=== PATIENT | male | born 1945 | race Hispanic/Latino ===

== ENCOUNTER 2016-12-12 09:11 | Inpatient (IN) | payer MEDICARE, SELFPAY ==
[2016-12-12 09:11] VITALS: BMI 26.6
[2016-12-12 10:21] LABS: BASO % 0.3 % (0.0-2.0); EOS # 0.5 K/uL (0.0-0.7); HEMATOCRIT 35.3 % (35.0-51.0); LYMPH # 0.7 K/uL (1.0-4.3); LYMPH % 5.7 % (20.0-40.0); MEAN CELL VOLUME 92.9 fL (80.0-94.0); MEAN CORPUSCULAR HEMOGLOBIN 31.2 pg (27.0-31.0); MEAN CORPUSCULAR HGB CONC 33.6 g/dL (33.0-37.0); MONO # 0.7 K/uL (0.0-0.8); MONO % 5.8 % (0.0-10.0); PLATELET COUNT 208 K/uL (130-400); RED CELL DISTRIBUTION WIDTH 13.5 % (11.5-14.5); WHITE BLOOD COUNT 11.5 K/uL (4.8-10.8)
[2016-12-12 10:34] LABS: RBC URINE < 1 /hpf (0-3); URINE BACTERIA RARE (<OCC); URINE BILIRUBIN NEGATIVE (NEGATIVE); URINE BLOOD NEGATIVE (NEGATIVE); URINE COLOR Yellow (YELLOW); URINE GLUCOSE (UA) 3+ mg/dL (Normal); URINE KETONE TRACE mg/dL (NEGATIVE); URINE LEUKOCYTE ESTERASE NEG Leu/uL (Negative); URINE PROTEIN NEGATIVE (NEGATIVE); URINE UROBILINOGEN NORMAL mg/dL (0.2-1.0); WBC URINE 1 /hpf (0-5)
[2016-12-12 10:36] LABS: CHLORIDE 97 mmol/L (98-107); POTASSIUM 3.9 mmol/L (3.6-5.2); SODIUM 138 mmol/L (132-148)
[2016-12-12 10:38] LABS: GFR AFRICAN-AMERICAN > 60
[2016-12-12 10:39] LABS: ALB/GLOB RATIO 1.2 (1.0-2.1); ALKALINE PHOSPHATASE 87 U/L (38-126); ALT/SGPT 14 U/L (21-72); AST/SGOT 18 U/L (17-59); BILIRUBIN,TOTAL 0.4 mg/dL (0.2-1.3); BLOOD UREA NITROGEN 21 mg/dL (9-20); CALCIUM 8.5 mg/dl (8.6-10.4); CARBON DIOXIDE 25 mmol/L (22-30); GLUCOSE,RANDOM 306 mg/dL (75-110); TOTAL PROTEIN 7.1 g/dL (6.3-8.3)
[2016-12-12 10:46] LABS: EOSINOPHIL 2 % (0-4); NEUTROPHIL 79 % (50-75); TOTAL CELLS COUNTED 100
--- NOTE | 2016-12-12 11:09 | CT ---
PROCEDURE: CT HEAD WITHOUT CONTRAST. HISTORY: tremor COMPARISON: MRI of the brain without contrast performed 07/24/15 TECHNIQUE: Axial computed tomography images were obtained through the head/brain without intravenous contrast. Radiation dose: Total exam DLP = 856.48 mGy-cm. FINDINGS: Streak artifact obscures evaluation of the skullbase. HEMORRHAGE: No intracranial hemorrhage. BRAIN: Diffuse atrophy with prominence of the ventricles and sulci noted. No mass effect or edema. Intracranial atherosclerosis. Moderate scattered periventricular and subcortical white matter hypodensities, which are nonspecific, but often seen with chronic microvascular ischemic disease. Please note that MRI with diffusion imaging is more sensitive in the detection of acute ischemic event. VENTRICLES: No hydrocephalus. CALVARIUM: Unremarkable. PARANASAL SINUSES: Unremarkable as visualized. No significant inflammatory changes. MASTOID AIR CELLS: Opacification of the left mastoid air cells; correlate clinically for mastoiditis. The right mastoid air cells appear clear. OTHER FINDINGS: None. IMPRESSION: Moderate scattered nonspecific white matter changes as above. Opacification of the left mastoid air cells; correlate clinically for mastoiditis.
--- NOTE | 2016-12-12 11:32 | RAD ---
HISTORY: shaky COMPARISON: None available. TECHNIQUE: Chest, one view. FINDINGS: LUNGS: No focal consolidation. Please note that chest x-ray has limited sensitivity for the detection of pulmonary masses. PLEURA: No significant pleural effusion identified. No definite pneumothorax . CARDIOVASCULAR: Cardiomegaly. Atherosclerotic calcifications. OSSEOUS STRUCTURES: Degenerative changes. VISUALIZED UPPER ABDOMEN: Elevation of the right hemidiaphragm. OTHER FINDINGS: None. IMPRESSION: Cardiomegaly. Elevation of the right hemidiaphragm.
--- NOTE | 2016-12-12 13:57 | C.PDOC ---
History Of Present Illness 71 year old male with a history of DM, presents to the ED with complaints of waking up shaking today. Denies any pain, trauma, or any other complaints at this time. Time Seen by Provider: 12/12/16 09:30 Chief Complaint (Nursing): Weakness/Neurological Deficit History Per: Patient History/Exam Limitations: no limitations Onset/Duration Of Symptoms: Hrs Current Symptoms Are (Timing): Still Present Seizure Or Post-ictal Symptoms: None Fall Associated With With Symptoms: No Severity: Mild Past Medical History Reviewed: Historical Data, Nursing Documentation, Vital Signs Vital Signs: Last Vital Signs Temp 99.3 F 12/12/16 16:13 Pulse 91 H 12/12/16 16:13 Resp 18 12/12/16 16:13 BP 112/70 12/12/16 16:13 Pulse Ox 96 12/12/16 16:13 - Medical History PMH: HTN, Hypercholesterolemia Family History: States: Unknown Family Hx - Social History Hx Alcohol Use: Yes Hx Substance Use: No - Immunization History Hx Tetanus Toxoid Vaccination: No Hx Influenza Vaccination: No Hx Pneumococcal Vaccination: No Review Of Systems Except As Marked, All Systems Reviewed And Found Negative. Constitutional: Positive for: Other (+Shaking) Cardiovascular: Negative for: Chest Pain, Palpitations Respiratory: Negative for: Shortness of Breath Gastrointestinal: Negative for: Nausea, Vomiting, Abdominal Pain Musculoskeletal: Negative for: Neck Pain, Back Pain Neurological: Negative for: Weakness, Numbness, Headache Physical Exam - Physical Exam Appears: Non-toxic, No Acute Distress, Other (tremor noticed) Skin: Normal Color, Warm, Dry Head: Atraumatic, Normacephalic Eye(s): bilateral: Normal Inspection Ear(s): Bilateral: Normal Nose: No Discharge Oral Mucosa: Moist Throat: Normal, No Erythema, No Exudate Neck: Normal ROM, Supple Chest: Symmetrical, No Deformity Cardiovascular: Rhythm Regular, No Murmur Respiratory: Normal Breath Sounds, No Accessory Muscle Use, No Rales, No Rhonchi , No Wheezing Gastrointestinal/Abdominal: Soft, No Tenderness Extremity: Normal ROM, No Pedal Edema, No Calf Tenderness, No Deformity Neurological/Psych: Oriented x3, Normal Speech, Normal Cognition ED Course And Treatment - Laboratory Results Result Diagrams: 12/12/16 10:14 12/12/16 10:14 O2 Sat by Pulse Oximetry: 94 - Radiology CXR: Viewed By Me, Read By Radiologist CXR Interpretation: Yes: Cardiomegaly, Other (Elevation of the right hemidiaphragm.) - CT Scan/US CT Head w/o contrast Other Rad Studies (CT/US): Read By Radiologist, Radiology Report Reviewed CT/US Interpretation: Accession No. : [id number]. Patient Name / ID : DELANO LAURENT / [id number]. Exam Date : 12/12/2016 10:24:17 ( Approved ). Study Comment : Sex / Age : M / 71Y. Creator : Miriam Murphy MD. Dictator : Miriam Murphy MD. Production Support Analyst : Police Lieutenant : Miriam Murphy MD. Approver2 : Report Date : 12/12/2016 11:08:10. My Comment : . PROCEDURE: CT HEAD WITHOUT CONTRAST. HISTORY: tremor. COMPARISON: MRI of the brain without contrast performed 07/24/15. TECHNIQUE: Axial computed tomography images were obtained through the head/brain without intravenous contrast. Radiation dose: Total exam DLP = 856.48 mGy-cm. FINDINGS: Streak artifact obscures evaluation of the skullbase. HEMORRHAGE: No intracranial hemorrhage. BRAIN: Diffuse atrophy with prominence of the ventricles and sulci noted. No mass effect or edema. Intracranial atherosclerosis. Moderate scattered periventricular and subcortical white matter hypodensities, which are nonspecific, but often seen with chronic microvascular ischemic disease. Please note that MRI with diffusion imaging is more sensitive in the detection of acute ischemic event. VENTRICLES: No hydrocephalus. CALVARIUM: Unremarkable. PARANASAL SINUSES: Unremarkable as visualized. No significant inflammatory changes. MASTOID AIR CELLS: Opacification of the left mastoid air cells; correlate clinically for mastoiditis. The right mastoid air cells appear clear. OTHER FINDINGS: None. IMPRESSION: Moderate scattered nonspecific white matter changes as above. Opacification of the left mastoid air cells; correlate clinically for mastoiditis. Progress Note: CT Head w/o contrast, CXR, Blood work, Urinalysis, and Flu swab ordered and reviewed. Patient developed a fever in the ER. Rocephin and Tylenol administered. Case was d/w Hospitalist operations and intelligence assistant who accepted patient to [facility] floor for observation. Disposition - Disposition Disposition: HOSPITALIZED Disposition Time: 15:48 Condition: FAIR - Clinical Impression Clinical Impression: Fever and chills - PA / CIVIL ENGINEERING DRAFTSPERSON / Resident Statement MD/DO has reviewed & agrees with the documentation as recorded. - Scribe Statement The provider has reviewed the documentation as recorded by the Scribe Dorothea Carbajal. All medical record entries made by the Scribe were at my direction and personally dictated by me. I have reviewed the chart and agree that the record accurately reflects my personal performance of the history, physical exam, medical decision making, and the department course for this patient. I have also personally directed, reviewed, and agree with the discharge instructions and disposition. Decision To Admit - Pt Status Changed To: Hospital Disposition Of: Observation - . Bed Request Type: Regular Admitting Physician: Carrol Whitmore Patient Diagnosis: Fever and chills
[2016-12-12] MEDS ORDERED: cefTRIAXone IV 1 gm in Dextros 50 ML IVPB ONE (14:58)
[2016-12-12] MEDS ORDERED: Sodium Chloride 0.9% 500 ML IV ONE (15:12)
--- NOTE | 2016-12-12 15:48 | CP.PCM.HP ---
<Holly Clement - Last Filed: 12/12/16 16:14> History of Present Illness - History of Present Illness History of Present Illness: CC: "contracted legs and tremors" HPI: Patient is a 71 year old male with PMHx of DMII and HTN presenting for contracted legs and "shaking legs." Patient says he woke up this morning and tried to walk but could not. He says his legs were very contracted. He says he got to the phone and called EMS. He says he then began shaking a lot which he remembers. He did not fall or hit his head. He just held onto a railing while his body shook. He did not urinate on himself or bite his tongue. Patient remembers the whole episode. Patient says this has never happened before. Patient also notes low back pain that has been getting worse since a fall 1 year ago. Patient also reports SOB and cough productive of green phlegm x 2 weeks. Patient denies orthopnea and sleeps with one pillow. Patient denies wheezing or history of asthma. Patient denies fever, chills, headache, vision change, ear pain, tinnitus, dizziness, chest pain, palpitations, abdominal pain, nausea, vomiting, diarrhea, constipation, dysuria, hematuria, easy bleeding, rash, wounds. Patient checks his feet for wounds every time he showers. PMD: Dr. Ann Allergies: NKDA PMH: HTN, DM2 PSH: denies Social: quit tobacco 40 years ago before which he smoked 1 pack every day for 10 years, denies ETOH, denies drugs, lives alone, retired fork driver/sales workers Family: No MIs, strokes or Cancer Present on Admission - Present on Admission Any Indicators Present on Admission: Yes History of Uncontrolled Diabetes: Yes Review of Systems - Constitutional Constitutional: Chills. absent: Fever - EENT Eyes: absent: Blurred Vision, Loss of Vision Ears: absent: Ear Pain, Tinnitus Nose/Mouth/Throat: absent: Sore Throat - Cardiovascular Cardiovascular: Dyspnea. absent: Chest Pain, Leg Edema, Leg Ulcers, Palpitations, Pedal Edema - Respiratory Respiratory: Cough, Dyspnea, Excessive Mucous Production, Change in Mucous Color. absent: Wheezing, Pain on Inspiration, Pain with Coughing - Gastrointestinal Gastrointestinal: absent: Abdominal Pain, Constipation, Diarrhea, Hematochezia, Nausea, Vomiting - Genitourinary Genitourinary: absent: Dysuria, Urinary Frequency - Musculoskeletal Musculoskeletal: Back Pain (lumbar pain x 1 year) - Integumentary Integumentary: absent: Rash, Wounds - Neurological Neurological: absent: Confusion, Dizziness, Headaches - Endocrine Endocrine: absent: Fatigue, Palpitations - Hematologic/Lymphatic Hematologic: absent: Easy Bleeding, Easy Bruising Past Patient History - Past Medical History & Family History Past Medical History?: Yes Past Family History: Reviewed and not pertinent - Past Social History Smoking Status: Former Smoker Alcohol: None Drugs: Denies Home Situation {Lives}: Alone - CARDIAC Hx Hypercholesterolemia: Yes Hx Hypertension: Yes - ENDOCRINE/METABOLIC Hx Endocrine Disorders: Yes Hx Diabetes Mellitus Type 2: Yes - HEMATOLOGICAL/ONCOLOGICAL Hx Blood Transfusions: No - GASTROINTESTINAL Hx Gastrointestinal Disorders: No - PSYCHIATRIC Hx Substance Use: No - SURGICAL HISTORY Hx Surgeries: No - ANESTHESIA Hx Anesthesia: No Hx Anesthesia Reactions: No Hx Malignant Hyperthermia: No Meds Allergies/Adverse Reactions: Allergies Allergy/AdvReac Type Severity Reaction Status Date / Time No Known Allergies Allergy Verified 12/12/16 09:25 Physical Exam - Constitutional Appears: Non-toxic, No Acute Distress - Head Exam Head Exam: ATRAUMATIC, NORMAL INSPECTION - Eye Exam Eye Exam: EOMI - ENT Exam ENT Exam: Mucous Membranes Moist, Normal Oropharynx - Neck Exam Additional comments: 1 mobile 1cm right submandibular lymph node - Respiratory Exam Respiratory Exam: Rhonchi (slight rhonchi in right base), NORMAL BREATHING PATTERN. absent: Accessory Muscle Use, Chest Wall Tenderness, Rales, Respiratory Distress - Cardiovascular Exam Cardiovascular Exam: REGULAR RHYTHM, +S1, +S2. absent: Gallop, Rubs, +S4, Systolic Murmur - GI/Abdominal Exam GI & Abdominal Exam: Normal Bowel Sounds, Soft. absent: Distended, Firm, Tenderness - Extremities Exam Extremities exam: Negative for: pedal edema - Neurological Exam Neurological exam: Alert, Oriented x3 - Psychiatric Exam Psychiatric exam: Normal Affect, Normal Mood - Skin Skin Exam: Normal Color, Warm Results - Vital Signs Recent Vital Signs: Last Vital Signs Temp 100.5 F H 12/12/16 12:32 Pulse 81 12/12/16 13:12 Resp 18 12/12/16 13:12 BP 118/61 12/12/16 13:12 Pulse Ox 94 L 12/12/16 14:01 - Labs Result Diagrams: 12/12/16 10:14 12/12/16 10:14 Labs: Laboratory Results - last 24 hr 12/12/16 12/12/16 12/12/16 09:27 09:36 10:14 WBC 11.5 H RBC 3.80 L Hgb 11.9 L Hct 35.3 MCV 92.9 MCH 31.2 H MCHC 33.6 RDW 13.5 Plt Count 208 MPV 9.0 Neut % (Auto) 84.2 H Lymph % (Auto) 5.7 L [place] % (Auto) 5.8 Eos % (Auto) 4.0 Baso % (Auto) 0.3 Neut # 9.7 H Lymph # 0.7 L [place] # 0.7 Eos # 0.5 Baso # 0.0 Neutrophils % (Manual) 79 H Band Neutrophils % 6 H Lymphocytes % (Manual) 6 L Monocytes % (Manual) 7 Eosinophils % (Manual) 2 Platelet Estimate Normal RBC Morphology Normal PT 11.5 INR 1.0 APTT 28 Sodium 138 Potassium 3.9 Chloride 97 L Carbon Dioxide 25 Anion Gap 20 BUN 21 H Creatinine 1.2 Est GFR ( Amer) > 60 Est GFR (Non-Af Amer) > 60 POC Glucose (mg/dL) 242 H Random Glucose 306 H Lactic Acid 2.6 H Calcium 8.5 L Total Bilirubin 0.4 AST 18 ALT 14 L Alkaline Phosphatase 87 Total Creatine Kinase 48 L CK-MB (Mass) 0.46 Troponin I < 0.0120 Total Protein 7.1 Albumin 3.8 Globulin 3.3 Albumin/Globulin Ratio 1.2 Urine Color Yellow Urine Clarity Clear Urine pH 5.0 Ur Specific [place] 1.013 Urine Protein Negative Urine Glucose (UA) 3+ H Urine Ketones Trace Urine Blood Negative Urine Nitrate Negative Urine Bilirubin Negative Urine Urobilinogen Normal Ur Leukocyte Esterase Neg Urine WBC (Auto) 1 Urine RBC (Auto) < 1 Ur Squamous Epith Cells < 1 Urine Bacteria Rare Influenza Typ A,B (EIA) Negative for flu a/b Assessment & Plan - Assessment and Plan (Free Text) Assessment: 1. SIRS Temp 102.5 on admission, dropped to 100.5 WBC 11.5 with left shift and bandemia Lactic Acid 2.6 Likely secondary to pneumonia CXR 12/12/16- cardiomegaly and elevated right hemidiaphragm (please see full report). Will recheck CXR in AM as patient is likely dry UA 3+ glucose, no WBC or LE or nitrates Influenza swab negative F/U blood and urine culture Tylenol 650mg PO Q6H PRN fever 2. Contracted legs Resolved Head CT on admission - moderate scattered nonspecific white matter changes. opacification of left mastoid air cells. Correlate clinically for mastoiditis( please see full report) No mastoid tenderness, ear tenderness or jaw tenderness on exam 3. Pneumonia F/U blood and sputum culture F/U Legionella, strep AG and Mycoplasma 1L NS bolus NS 100cc/hr CXR in AM Rocephin 1gm IVPB daily Zithromax 500mg IVPB daily Tylenol 650mg PO Q6H PRN fever 4. DMII Holding home metformin 500mg PO BID and glipizide 5mg PO BID RISS - high dose F/U HgbA1C Monitor accuchecks Continue ASA 81mg PO daily and lipitor 10mg PO daily and lyrica 75mg PO BID 5. HTN Continue home meds: Verapamil 300mg PO daily Lopressor 100mg PO daily Lisinopril 40mg PO BID HCTZ 25mg PO daily 6. Vitamin D deficiency continue home med [id number] Q wk 7. Prophylaxis Protonix 40mg PO daily Hep 5000U SC Q8 SCDs <Rowdy Mares H - Last Filed: 12/13/16 07:38> Results - Vital Signs Recent Vital Signs: Last Vital Signs Temp 98.0 F 12/13/16 04:00 Pulse 87 12/13/16 04:00 Resp 20 12/13/16 04:00 BP 167/72 H 12/13/16 04:00 Pulse Ox 97 12/13/16 04:00 - Labs Result Diagrams: 12/13/16 06:59 12/12/16 10:14 Labs: Laboratory Results - last 24 hr 12/12/16 12/12/16 12/12/16 16:19 16:31 17:02 WBC RBC Hgb Hct MCV MCH MCHC RDW Plt Count MPV Neut % (Auto) Lymph % (Auto) [place] % (Auto) Eos % (Auto) Baso % (Auto) Neut # Lymph # [place] # Eos # Baso # POC Glucose (mg/dL) 265 H Lactic Acid 2.0 Ur L.pneumophila Ag Negative 12/12/16 12/13/16 12/13/16 22:18 06:20 06:59 WBC 8.4 RBC 3.37 L Hgb 10.3 L Hct 30.9 L MCV 91.7 MCH 30.6 MCHC 33.3 RDW 13.6 Plt Count 172 MPV 8.9 Neut % (Auto) 75.1 H Lymph % (Auto) 12.7 L [place] % (Auto) 7.8 Eos % (Auto) 4.0 Baso % (Auto) 0.4 Neut # 6.3 Lymph # 1.1 [place] # 0.7 Eos # 0.3 Baso # 0.0 POC Glucose (mg/dL) 188 H 158 H Lactic Acid Ur L.pneumophila Ag Attending/Attestation - Attestation I have personally seen and examined this patient.: Yes I have fully participated in the care of the patient.: Yes I have reviewed all pertinent clinical information: Yes Notes (Text): 12/13/16 07:34 Medical attending: Patient was seen and examined by me in the ER bed 8B. I do agree with the above note by medical surgery nurse. The patient had family members present and we all examined and discussed together. The patient reported that he was feeling fine now. Again as discussed above the resident note the earlier had fevers as well as some shaking that woke him up out of bed at night he also reported some night sweats as well the emergency room did do an influenza study this was negative however I pointed out to the patient as well as the patient's family members that sometimes the study to be negative and he might actually do have the flu. His white blood cell count is stable however he does have a left shift as well as bandemia noted on the blood work. He was having fevers earlier, he had a very slight elevation of his lactic acid level He does report coughing a lot, as well as some phlegm production. The chest film was appeared to be negative for any pulmonary process however if he doesn' t have some improvement in the lab work tomorrow we will consider getting a CT of the chest without contrast. He received any biotics before the emergency room true blood cultures. He had not yet received any intravenous fluids and supportive give him some intravenous fluid boluses been followed up with IV fluids. The chest x-ray suggests possible cardiomegaly, he is not short of breath at this time and we are giving a lot of fluids we will repeat this chest x-ray the next day and if he becomes fluid overload or anything will have to stop that In the meantime we'll give antibodies, check blood cultures, and check sputum cultures as well as atypical cultures. This being said I did point out to the patient as well as the patient's family member that this may represent some type of viral illness such as the influenza or other URIs such as acute bronchitis thank you Rowdy Mares
[2016-12-12] MEDS ORDERED: Sodium Chloride 0.9% 1,000 ML IV ONE (16:30)
[2016-12-12] MEDS ORDERED: (Novolin R) Insulin Human Regular 100 units/ml vial ONE (16:35)
[2016-12-12] MEDS: (Novolin R) Insulin Human Regular 100 units/ml vial SC SCH ×2 (16:35→22:19)
--- NOTE | 2016-12-12 18:32 | RAD ---
HISTORY: possible pneumonia COMPARISON: Chest x-ray performed earlier the same day TECHNIQUE: Chest PA and lateral FINDINGS: Examination limited by habitus. LUNGS: Left basilar atelectasis/ infiltrate. Please note that chest x-ray has limited sensitivity for the detection of pulmonary masses. PLEURA: No significant pleural effusion identified. No definite pneumothorax . CARDIOVASCULAR: Heart size appears top normal. Atherosclerotic calcification of the aorta. OSSEOUS STRUCTURES: Degenerative changes of the spine and shoulders. Kyphosis. Acromioclavicular arthropathy. VISUALIZED UPPER ABDOMEN: Elevation of the right hemidiaphragm. OTHER FINDINGS: None. IMPRESSION: Left basilar atelectasis/ infiltrate.
[2016-12-12] MEDS: Sodium Chloride 0.9% 1,000 ML IV SCH (19:46)
[2016-12-12] MEDS: Azithromycin 500 MG in Sodium Chloride 0.9% 250 ML IVPB SCH (19:59)
[2016-12-13 07:07] LABS: BASO % 0.4 % (0.0-2.0); EOS # 0.3 K/uL (0.0-0.7); HEMATOCRIT 30.9 % (35.0-51.0); LYMPH # 1.1 K/uL (1.0-4.3); LYMPH % 12.7 % (20.0-40.0); MEAN CELL VOLUME 91.7 fL (80.0-94.0); MEAN CORPUSCULAR HEMOGLOBIN 30.6 pg (27.0-31.0); MEAN CORPUSCULAR HGB CONC 33.3 g/dL (33.0-37.0); MEAN PLATELET VOLUME 8.9 fL (7.2-11.7); MONO # 0.7 K/uL (0.0-0.8); MONO % 7.8 % (0.0-10.0); RED CELL DISTRIBUTION WIDTH 13.6 % (11.5-14.5); WHITE BLOOD COUNT 8.4 K/uL (4.8-10.8)
[2016-12-13 07:24] LABS: CHLORIDE 100 mmol/L (98-107); POTASSIUM 3.9 mmol/L (3.6-5.2); SODIUM 137 mmol/L (132-148)
[2016-12-13 07:26] LABS: ALB/GLOB RATIO 1.1 (1.0-2.1); ALKALINE PHOSPHATASE 57 U/L (38-126); AST/SGOT 17 U/L (17-59); BILIRUBIN,TOTAL 0.4 mg/dL (0.2-1.3); BLOOD UREA NITROGEN 17 mg/dL (9-20); CARBON DIOXIDE 27 mmol/L (22-30); CHOLESTEROL 180 mg/dL (0-199); GFR AFRICAN-AMERICAN > 60; TOTAL PROTEIN 6.1 g/dL (6.3-8.3)
[2016-12-13 07:27] LABS: ALT/SGPT 23 U/L (21-72); CALCIUM 7.6 mg/dl (8.6-10.4); GLUCOSE,RANDOM 154 mg/dL (75-110)
[2016-12-13] MEDS: (Novolin R) Insulin Human Regular 100 units/ml vial SC SCH ×4 (07:47→22:00)
[2016-12-13] MEDS: Pantoprazole 40 mg EC Tab PO SCH (09:23)
[2016-12-13] MEDS: Sodium Chloride 0.9% 1,000 ML IV SCH ×3 (09:23→15:04)
[2016-12-13] MEDS ORDERED: VERAPAMIL HCL 300 MG PO SCH (10:00)
[2016-12-13] MEDS ORDERED: Ergocalciferol 50,000 Intl Units Cap PO SCH (10:00)
--- NOTE | 2016-12-13 15:23 | CP.PCM.PN ---
<Jorge Luis Rossy - Last Filed: 12/13/16 15:24> Subjective - Date & Time of Evaluation Date of Evaluation: 12/13/16 Time of Evaluation: 15:23 - Subjective Subjective: PGY-1 Medicine Progress Note for Dr. Mares Patient seen and examined at bedside. No acute event overnight. Patient still complaining of cough. He stated fever and his breathing has improved. Patient also complaining of chest pain due to repetitive cough. Tolerating diet. Denied fever/chills, sob, palpitations, abd pain, n/v/d. Objective - Vital Signs/Intake and Output Vital Signs (last 24 hours): Temp Pulse Resp BP Pulse Ox 99.8 F H 87 20 134/72 97 12/13/16 07:40 12/13/16 10:58 12/13/16 07:40 12/13/16 14:34 12/13/16 07:40 Intake and Output: 12/13/16 12/13/16 06:59 18:59 Intake Total 1590 1150 Output Total 700 1200 Balance 890 -50 - Medications Medications: Current Medications Acetaminophen (Tylenol 325mg Tab) 650 mg PO Q6 PRN PRN Reason: Fever >100.4 F Last Admin: 12/12/16 19:57 Dose: 650 mg Aspirin (Ecotrin) 81 mg PO DAILY [facility] Last Admin: 12/13/16 09:22 Dose: 81 mg Ergocalciferol (Drisdol 50,000 Intl Units Cap) 1 cap PO QWK [facility] Last Admin: 12/13/16 09:22 Dose: 1 cap Heparin Sodium (Porcine) (Heparin) 5,000 units SC Q8 [facility] Last Admin: 12/13/16 13:42 Dose: 5,000 units Hydrochlorothiazide (Hydrodiuril) 25 mg PO DAILY [facility] Last Admin: 12/13/16 09:22 Dose: 25 mg Azithromycin 500 mg/ Sodium (Chloride) 250 mls @ 250 mls/hr IVPB Q24H [facility] Last Admin: 12/12/16 19:59 Dose: 250 mls/hr Ceftriaxone Sodium 1 gm/ (Sodium Chloride) 100 mls @ 100 mls/hr IVPB DAILY [facility] Last Admin: 12/13/16 09:23 Dose: 100 mls/hr Sodium Chloride (Sodium Chloride 0.9%) 1,000 mls @ 60 mls/hr IV .[id number] [facility] Last Admin: 12/13/16 15:04 Dose: 60 mls/hr Insulin Human Regular (Novolin R) 0 unit SC ACHS [facility] PRN Reason: Protocol Last Admin: 12/13/16 12:12 Dose: 4 unit Lisinopril (Zestril) 40 mg PO BID [facility] Last Admin: 12/13/16 14:34 Dose: 40 mg Metoprolol Tartrate (Lopressor) 100 mg PO BID [facility] Last Admin: 12/13/16 09:22 Dose: 100 mg Pantoprazole Sodium (Protonix Ec Tab) 40 mg PO DAILY [facility] Last Admin: 12/13/16 09:23 Dose: 40 mg Pregabalin (Lyrica) 75 mg PO BID [facility] Last Admin: 12/13/16 09:22 Dose: 75 mg Rosuvastatin Calcium (Crestor) 5 mg PO HS [facility] Last Admin: 12/12/16 21:50 Dose: 5 mg - Labs Labs: 12/13/16 06:59 12/13/16 06:59 PT 11.5 SECONDS (9.7-12.2) 12/12/16 10:14 INR 1.0 12/12/16 10:14 APTT 28 SECONDS (21-34) 12/12/16 10:14 - Constitutional Appears: No Acute Distress - Head Exam Head Exam: ATRAUMATIC, NORMOCEPHALIC - Eye Exam Eye Exam: EOMI, Normal appearance Pupil Exam: PERRL - ENT Exam ENT Exam: Mucous Membranes Moist - Respiratory Exam Respiratory Exam: Rhonchi, NORMAL BREATHING PATTERN - Cardiovascular Exam Cardiovascular Exam: REGULAR RHYTHM, +S1, +S2 - GI/Abdominal Exam GI & Abdominal Exam: Soft, Normal Bowel Sounds. absent: Distended, Firm, Guarding, Tenderness - Extremities Exam Extremities Exam: Normal Capillary Refill. absent: Calf Tenderness - Back Exam Back Exam: absent: CVA tenderness (L), CVA tenderness (R) - Neurological Exam Neurological Exam: Alert, Awake, CN II-XII Intact, Oriented x3 - Psychiatric Exam Psychiatric exam: Normal Affect, Normal Mood - Skin Skin Exam: Dry, Intact, Normal Color, Warm Assessment and Plan - Assessment and Plan (Free Text) Plan: 1. SIRS Temp 102.5 on admission left shift and bandemia Lactic Acid 2.6 Likely secondary to pneumonia CXR 12/12: cardiomegaly and elevated right hemidiaphragm (please see full report) . CXR 12/13: Left basilar infiltrate UA 3+ glucose, no WBC or LE or nitrates Influenza swab negative F/U blood and urine culture Tylenol 650mg PO Q6H PRN fever 2. Contracted legs Resolved Head CT on admission - moderate scattered nonspecific white matter changes. opacification of left mastoid air cells. Correlate clinically for mastoiditis ( please see full report) No mastoid tenderness, ear tenderness or jaw tenderness on exam 3. Pneumonia F/U blood and sputum culture F/U Legionella, strep AG and Mycoplasma NS 60cc/hr CXR in AM Rocephin 1gm IVPB daily Zithromax 500mg IVPB daily Tylenol 650mg PO Q6H PRN fever 4. DM Holding home metformin 500mg PO BID and glipizide 5mg PO BID RISS - high dose HgbA1C Monitor accuchecks Continue ASA 81mg PO daily and lipitor 10mg PO daily and lyrica 75mg PO BID 5. HTN Continue home meds: Verapamil 300mg PO daily Lopressor 100mg PO daily Lisinopril 40mg PO BID HCTZ 25mg PO daily 6. Vitamin D deficiency continue home med [id number] Q wk 7. Prophylaxis Protonix 40mg PO daily Hep 5000U SC Q8 [facility] <Rowdy Mares H - Last Filed: 12/13/16 16:01> Objective - Vital Signs/Intake and Output Vital Signs (last 24 hours): Temp Pulse Resp BP Pulse Ox 100.8 F H 78 20 137/74 94 L 12/13/16 15:34 12/13/16 15:34 12/13/16 15:34 12/13/16 15:34 12/13/16 15:34 Intake and Output: 12/13/16 12/13/16 06:59 18:59 Intake Total 1590 1150 Output Total 700 1200 Balance 890 -50 - Medications Medications: Current Medications Acetaminophen (Tylenol 325mg Tab) 650 mg PO Q6 PRN PRN Reason: Fever >100.4 F Last Admin: 12/12/16 19:57 Dose: 650 mg Aspirin (Ecotrin) 81 mg PO DAILY [facility] Last Admin: 12/13/16 09:22 Dose: 81 mg Benzonatate (Tessalon Perles) 100 mg PO TID [facility] Ergocalciferol (Drisdol 50,000 Intl Units Cap) 1 cap PO QWK [facility] Last Admin: 12/13/16 09:22 Dose: 1 cap Heparin Sodium (Porcine) (Heparin) 5,000 units SC Q8 [facility] Last Admin: 12/13/16 13:42 Dose: 5,000 units Hydrochlorothiazide (Hydrodiuril) 25 mg PO DAILY [facility] Last Admin: 12/13/16 09:22 Dose: 25 mg Azithromycin 500 mg/ Sodium (Chloride) 250 mls @ 250 mls/hr IVPB Q24H [facility] Last Admin: 12/12/16 19:59 Dose: 250 mls/hr Ceftriaxone Sodium 1 gm/ (Sodium Chloride) 100 mls @ 100 mls/hr IVPB DAILY [facility] Last Admin: 12/13/16 09:23 Dose: 100 mls/hr Sodium Chloride (Sodium Chloride 0.9%) 1,000 mls @ 60 mls/hr IV .[id number] [facility] Last Admin: 12/13/16 15:04 Dose: 60 mls/hr Insulin Human Regular (Novolin R) 0 unit SC ACHS [facility] PRN Reason: Protocol Last Admin: 12/13/16 12:12 Dose: 4 unit Lisinopril (Zestril) 40 mg PO BID [facility] Last Admin: 12/13/16 14:34 Dose: 40 mg Metoprolol Tartrate (Lopressor) 100 mg PO BID [facility] Last Admin: 12/13/16 09:22 Dose: 100 mg Pantoprazole Sodium (Protonix Ec Tab) 40 mg PO DAILY [facility] Last Admin: 12/13/16 09:23 Dose: 40 mg Pregabalin (Lyrica) 75 mg PO BID [facility] Last Admin: 12/13/16 09:22 Dose: 75 mg Rosuvastatin Calcium (Crestor) 5 mg PO HS [facility] Last Admin: 12/12/16 21:50 Dose: 5 mg - Labs Labs: 12/13/16 06:59 12/13/16 06:59 PT 11.5 SECONDS (9.7-12.2) 12/12/16 10:14 INR 1.0 12/12/16 10:14 APTT 28 SECONDS (21-34) 12/12/16 10:14 Attending/Attestation - Attestation I have personally seen and examined this patient.: Yes I have fully participated in the care of the patient.: Yes I have reviewed all pertinent clinical information, including history, physical exam and plan: Yes Notes (Text): Medical Attending: Patient was seen and examined by me. Agree with the above note by the resident. The patient reported he did not have any acute events or concerns overnight - however still has coughing a lot. Cultures of the sputum have been sent for already, blood cultures pending as well. Will give medication for cough. In the mean time continue with IV ABX. Today he did not have an elevated temperature. Also the repeat XRAY this time suggest possible infiltrate in the lower lobes - reguardless should continue to monitor the patient's vitals, continue abx, and follow the blood cultures. thank you Rowdy Mares
[2016-12-13] MEDS: Azithromycin 500 MG in Sodium Chloride 0.9% 250 ML IVPB SCH (18:24)
[2016-12-14 06:08] LABS: MEAN CELL VOLUME 92.1 fL (80.0-94.0); MEAN CORPUSCULAR HEMOGLOBIN 30.6 pg (27.0-31.0); MEAN CORPUSCULAR HGB CONC 33.3 g/dL (33.0-37.0); RED CELL DISTRIBUTION WIDTH 13.5 % (11.5-14.5); WHITE BLOOD COUNT 5.6 K/uL (4.8-10.8)
[2016-12-14 06:32] LABS: CHLORIDE 97 mmol/L (98-107); POTASSIUM 4.1 mmol/L (3.6-5.2); SODIUM 136 mmol/L (132-148)
[2016-12-14 06:34] LABS: ALB/GLOB RATIO 1.2 (1.0-2.1); ALKALINE PHOSPHATASE 60 U/L (38-126); ALT/SGPT 21 U/L (21-72); AST/SGOT 27 U/L (17-59); BILIRUBIN,TOTAL 0.5 mg/dL (0.2-1.3); BLOOD UREA NITROGEN 16 mg/dL (9-20); CARBON DIOXIDE 26 mmol/L (22-30); GFR AFRICAN-AMERICAN > 60; GLUCOSE,RANDOM 147 mg/dL (75-110); TOTAL PROTEIN 6.7 g/dL (6.3-8.3)
[2016-12-14 06:35] LABS: MAGNESIUM 1.7 mg/dL (1.6-2.3); PHOSPHOROUS 3.4 mg/dL (2.5-4.5)
[2016-12-14] MEDS: (Novolin R) Insulin Human Regular 100 units/ml vial SC SCH ×4 (07:39→22:20)
[2016-12-14] MEDS: Sodium Chloride 0.9% 1,000 ML IV SCH (07:43)
[2016-12-14] MEDS: Pantoprazole 40 mg EC Tab PO SCH (09:04)
[2016-12-14] MEDS: Albuterol-Ipratrop 3 mg / 0.5 (3 ml) UD INH SCH ×2 (13:20→20:02)
--- NOTE | 2016-12-14 15:52 | CP.PCM.PN ---
Subjective - Date & Time of Evaluation Date of Evaluation: 12/14/16 Time of Evaluation: 07:30 - Subjective Subjective: PGY-1 Medicine Progress Note for Dr. Carter: Patient seen and examined at bedside. No acute event overnight. Patient still complaining of cough with a lot of white phlegm production. Tolerating diet and having normal BMs. Denied fever/chills, sob, chest pain, palpitations, abd pain , n/v/d, numbness/tingling. Objective - Vital Signs/Intake and Output Vital Signs (last 24 hours): Temp Pulse Resp BP Pulse Ox 98.9 F 68 20 156/76 H 95 12/14/16 07:10 12/14/16 13:41 12/14/16 07:10 12/14/16 07:10 12/14/16 11:56 Intake and Output: 12/14/16 12/14/16 06:59 18:59 Intake Total 600 Output Total 500 Balance 100 - Medications Medications: Current Medications Acetaminophen (Tylenol 325mg Tab) 650 mg PO Q6 PRN PRN Reason: Fever >100.4 F Last Admin: 12/14/16 00:27 Dose: 650 mg Albuterol/Ipratropium (Duoneb 3 Mg/0.5 Mg (3 Ml) Ud) 3 ml INH RQ6 [facility] Last Admin: 12/14/16 13:20 Dose: 3 ml Aspirin (Ecotrin) 81 mg PO DAILY [facility] Last Admin: 12/14/16 09:03 Dose: 81 mg Benzonatate (Tessalon Perles) 100 mg PO TID [facility] Last Admin: 12/14/16 13:20 Dose: 100 mg Ergocalciferol (Drisdol 50,000 Intl Units Cap) 1 cap PO QWK [facility] Last Admin: 12/13/16 09:22 Dose: 1 cap Heparin Sodium (Porcine) (Heparin) 5,000 units SC Q8 [facility] Last Admin: 12/14/16 13:20 Dose: 5,000 units Hydrochlorothiazide (Hydrodiuril) 25 mg PO DAILY [facility] Last Admin: 12/14/16 09:08 Dose: 25 mg Azithromycin 500 mg/ Sodium (Chloride) 250 mls @ 250 mls/hr IVPB Q24H [facility] Last Admin: 12/13/16 18:24 Dose: 250 mls/hr Ceftriaxone Sodium 1 gm/ (Sodium Chloride) 100 mls @ 100 mls/hr IVPB DAILY [facility] Last Admin: 12/14/16 09:04 Dose: 100 mls/hr Sodium Chloride (Sodium Chloride 0.9%) 1,000 mls @ 60 mls/hr IV .[id number] [facility] Last Admin: 12/14/16 07:43 Dose: 60 mls/hr Insulin Human Regular (Novolin R) 0 unit SC ACHS [facility] PRN Reason: Protocol Last Admin: 12/14/16 12:03 Dose: 2 unit Lisinopril (Zestril) 40 mg PO BID [facility] Last Admin: 12/14/16 09:06 Dose: 40 mg Metoprolol Tartrate (Lopressor) 100 mg PO BID [facility] Last Admin: 12/14/16 09:04 Dose: 100 mg Pantoprazole Sodium (Protonix Ec Tab) 40 mg PO DAILY [facility] Last Admin: 12/14/16 09:04 Dose: 40 mg Pregabalin (Lyrica) 75 mg PO BID [facility] Last Admin: 12/14/16 09:04 Dose: 75 mg Rosuvastatin Calcium (Crestor) 5 mg PO HS [facility] Last Admin: 12/13/16 21:31 Dose: 5 mg - Labs Labs: 12/14/16 05:56 12/14/16 05:56 PT 11.5 SECONDS (9.7-12.2) 12/12/16 10:14 INR 1.0 12/12/16 10:14 APTT 28 SECONDS (21-34) 12/12/16 10:14 - Constitutional Appears: Non-toxic, No Acute Distress - Head Exam Head Exam: ATRAUMATIC, NORMAL INSPECTION - Eye Exam Eye Exam: EOMI, Normal appearance, PERRL Pupil Exam: NORMAL ACCOMODATION - ENT Exam ENT Exam: Mucous Membranes Moist - Neck Exam Neck Exam: Normal Inspection - Respiratory Exam Respiratory Exam: Decreased Breath Sounds, Wheezes, NORMAL BREATHING PATTERN. absent: Accessory Muscle Use, Chest Wall Tenderness, Respiratory Distress - Cardiovascular Exam Cardiovascular Exam: REGULAR RHYTHM, +S1, +S2 - GI/Abdominal Exam GI & Abdominal Exam: Soft, Normal Bowel Sounds. absent: Distended, Firm, Guarding, Tenderness Additional comments: Obese - Extremities Exam Extremities Exam: Normal Inspection. absent: Calf Tenderness, Pedal Edema - Back Exam Back Exam: NORMAL INSPECTION. absent: CVA tenderness (L), CVA tenderness (R), paraspinal tenderness - Neurological Exam Neurological Exam: Alert, Awake, CN II-XII Intact, Oriented x3 Neuro motor strength exam: Left Upper Extremity: 5, Right Upper Extremity: 5, Left Lower Extremity: 5, Right Lower Extremity: 5 - Psychiatric Exam Psychiatric exam: Normal Affect, Normal Mood - Skin Skin Exam: Dry, Intact, Normal Color, Warm Assessment and Plan - Assessment and Plan (Free Text) Assessment: Pneumonia WBC 5.6 CXR - left basilar infiltrate/atelectasis F/U Legionella - negative, influenza negative, f/u strep AG and Mycoplasma NS 60cc/hr Rocephin 1gm IVPB daily Zithromax 500mg IVPB daily Tylenol 650mg PO Q6H PRN fever Met SIRS crtieria on admission - improving sputum cx - normal robbie, negative f/u am labs SIRS Resolving Temp 102.5 on admission left shift and bandemia Lactic Acid 2.6 Likely secondary to pneumonia CXR 12/12: cardiomegaly and elevated right hemidiaphragm (please see full report) . CXR 12/13: Left basilar infiltrate UA 3+ glucose, no WBC or LE or nitrates Influenza swab negative blood cx - negative after 48 hours urine cx - negative sputum cx - normal robbie, negative Tylenol 650mg PO Q6H PRN fever Head Ct negative "Contracted legs" Resolved Head CT on admission - moderate scattered nonspecific white matter changes. opacification of left mastoid air cells. Correlate clinically for mastoiditis ( please see full report) No mastoid tenderness, ear tenderness or jaw tenderness on exam DM Holding home metformin 500mg PO BID and glipizide 5mg PO BID RISS - high dose HgbA1C Monitor accuchecks Continue ASA 81mg PO daily and lipitor 10mg PO daily and lyrica 75mg PO BID HTN Continue home meds: Verapamil 300mg PO daily Lopressor 100mg PO daily Lisinopril 40mg PO BID HCTZ 25mg PO daily Vitamin D deficiency continue home med [id number] Q wk Prophylaxis Protonix 40mg PO daily Hep 5000U SC Q8 [facility]
[2016-12-14] MEDS: Azithromycin 500 MG in Sodium Chloride 0.9% 250 ML IVPB SCH (17:42)
[2016-12-14] MEDS ORDERED: MethylPREDNISolone 40 mg Vial IVP STA (22:15)
[2016-12-15] MEDS: Sodium Chloride 0.9% 1,000 ML IV SCH ×3 (00:28→16:45)
[2016-12-15] MEDS: Albuterol-Ipratrop 3 mg / 0.5 (3 ml) UD INH SCH ×6 (01:29→23:35)
[2016-12-15 07:38] LABS: BASO % 0.1 % (0.0-2.0); EOS % 0.1 % (0.0-4.0); HEMATOCRIT 32.8 % (35.0-51.0); LYMPH # 0.5 K/uL (1.0-4.3); LYMPH % 9.5 % (20.0-40.0); MEAN CORPUSCULAR HEMOGLOBIN 31.4 pg (27.0-31.0); MEAN CORPUSCULAR HGB CONC 33.8 g/dL (33.0-37.0); MEAN PLATELET VOLUME 9.1 fL (7.2-11.7); MONO # 0.1 K/uL (0.0-0.8); MONO % 2.5 % (0.0-10.0); PLATELET COUNT 176 K/uL (130-400); RED CELL DISTRIBUTION WIDTH 13.4 % (11.5-14.5); WHITE BLOOD COUNT 4.8 K/uL (4.8-10.8)
[2016-12-15] MEDS: (Novolin R) Insulin Human Regular 100 units/ml vial SC SCH ×4 (07:52→22:14)
[2016-12-15 08:30] LABS: CHLORIDE 96 mmol/L (98-107)
[2016-12-15 08:31] LABS: POTASSIUM 4.7 mmol/L (3.6-5.2); SODIUM 139 mmol/L (132-148)
[2016-12-15 08:33] LABS: ALB/GLOB RATIO 0.9 (1.0-2.1); ALKALINE PHOSPHATASE 62 U/L (38-126); ALT/SGPT 23 U/L (21-72); AST/SGOT 30 U/L (17-59); BILIRUBIN,TOTAL 0.2 mg/dL (0.2-1.3); BLOOD UREA NITROGEN 22 mg/dL (9-20); CARBON DIOXIDE 27 mmol/L (22-30); GFR AFRICAN-AMERICAN > 60; GLUCOSE,RANDOM 323 mg/dL (75-110); PHOSPHOROUS 5.9 mg/dL (2.5-4.5)
[2016-12-15 08:34] LABS: CALCIUM 8.5 mg/dl (8.6-10.4); MAGNESIUM 1.6 mg/dL (1.6-2.3)
[2016-12-15] MEDS: Pantoprazole 40 mg EC Tab PO SCH (09:52)
--- NOTE | 2016-12-15 09:58 | RAD ---
HISTORY: pneumonia repeat, COMPARISON: No prior. FINDINGS: LUNGS: No active pulmonary disease. PLEURA: No significant pleural effusion identified, no pneumothorax apparent. CARDIOVASCULAR: Top-normal OSSEOUS STRUCTURES: Minimal thoracic spondylosis. Bilateral acromioclavicular joint productive osteoarthrosis VISUALIZED UPPER ABDOMEN: Normal. OTHER FINDINGS: None. IMPRESSION: No active disease.
[2016-12-15] MEDS ORDERED: Albuterol-Ipratrop 3 mg / 0.5 (3 ml) UD INH STA (10:03)
--- NOTE | 2016-12-15 10:22 | CP.PCM.DIS ---
Provider - Provider Date of Admission: 12/12/16 16:03 Attending physician: Rowdy Mares DO Hospital Course - Lab Results Lab Results: Micro Results 12/12/16 17:39 Sputum Gram Stain - Final 12/12/16 17:39 Sputum Sputum Culture - Final NORMAL ORAL RADHA 12/12/16 Unknown Urine Urine Culture - Final No Growth (<1,000 CFU/ML) Most Recent Lab Values WBC 4.8 K/uL (4.8-10.8) 12/15/16 07:09 RBC 3.52 Mil/uL (4.40-5.90) L 12/15/16 07:09 Hgb 11.1 g/dL (12.0-18.0) L 12/15/16 07:09 Hct 32.8 % (35.0-51.0) L 12/15/16 07:09 MCV 93.0 fL (80.0-94.0) 12/15/16 07:09 MCH 31.4 pg (27.0-31.0) H 12/15/16 07:09 MCHC 33.8 g/dL (33.0-37.0) 12/15/16 07:09 RDW 13.4 % (11.5-14.5) 12/15/16 07:09 Plt Count 176 K/uL (130-400) 12/15/16 07:09 MPV 9.1 fL (7.2-11.7) 12/15/16 07:09 Neut % (Auto) 87.8 % (50.0-75.0) H 12/15/16 07:09 Lymph % (Auto) 9.5 % (20.0-40.0) L 12/15/16 07:09 Gaines % (Auto) 2.5 % (0.0-10.0) 12/15/16 07:09 Eos % (Auto) 0.1 % (0.0-4.0) 12/15/16 07:09 Baso % (Auto) 0.1 % (0.0-2.0) 12/15/16 07:09 Neut # 4.2 K/uL (1.8-7.0) 12/15/16 07:09 Lymph # 0.5 K/uL (1.0-4.3) L 12/15/16 07:09 Gaines # 0.1 K/uL (0.0-0.8) 12/15/16 07:09 Eos # 0.0 K/uL (0.0-0.7) 12/15/16 07:09 Baso # 0.0 K/uL (0.0-0.2) 12/15/16 07:09 Neutrophils % (Manual) 79 % (50-75) H 12/12/16 10:14 Band Neutrophils % 6 % (0-2) H 12/12/16 10:14 Lymphocytes % (Manual) 6 % (20-40) L 12/12/16 10:14 Monocytes % (Manual) 7 % (0-10) 12/12/16 10:14 Eosinophils % (Manual) 2 % (0-4) 12/12/16 10:14 Platelet Estimate Normal (NORMAL) 12/12/16 10:14 RBC Morphology Normal 12/12/16 10:14 PT 11.5 SECONDS (9.7-12.2) 12/12/16 10:14 INR 1.0 12/12/16 10:14 APTT 28 SECONDS (21-34) 12/12/16 10:14 Sodium 139 mmol/L (132-148) 12/15/16 07:09 Potassium 4.7 mmol/L (3.6-5.2) 12/15/16 07:09 Chloride 96 mmol/L (98-107) L 12/15/16 07:09 Carbon Dioxide 27 mmol/L (22-30) 12/15/16 07:09 Anion Gap 21 (10-20) H 12/15/16 07:09 BUN 22 mg/dL (9-20) H 12/15/16 07:09 Creatinine 1.1 MG/DL (0.8-1.5) 12/15/16 07:09 Est GFR ( Amer) > 60 12/15/16 07:09 Est GFR (Non-Af Amer) > 60 12/15/16 07:09 POC Glucose (mg/dL) 325 mg/dL (65-110) H 12/15/16 06:31 Random Glucose 323 mg/dL (75-110) H 12/15/16 07:09 Hemoglobin A1c 9.1 % (4.2-6.5) H 12/13/16 06:59 Lactic Acid 2.0 mmol/L (0.7-2.1) 12/12/16 16:19 Calcium 8.5 mg/dl (8.6-10.4) L 12/15/16 07:09 Phosphorus 5.9 mg/dL (2.5-4.5) H 12/15/16 07:09 Magnesium 1.6 mg/dL (1.6-2.3) 12/15/16 07:09 Total Bilirubin 0.2 mg/dL (0.2-1.3) 12/15/16 07:09 AST 30 U/L (17-59) 12/15/16 07:09 ALT 23 U/L (21-72) 12/15/16 07:09 Alkaline Phosphatase 62 U/L (38-126) 12/15/16 07:09 Total Creatine Kinase 48 U/L (55-170) L 12/12/16 10:14 CK-MB (Mass) 0.46 ng/mL (0.0-3.38) 12/12/16 10:14 Troponin I < 0.0120 ng/mL (0.00-0.120) 12/12/16 10:14 Total Protein 7.0 g/dL (6.3-8.3) 12/15/16 07:09 Albumin 3.4 g/dL (3.5-5.0) L 12/15/16 07:09 Globulin 3.6 gm/dL (2.2-3.9) 12/15/16 07:09 Albumin/Globulin Ratio 0.9 (1.0-2.1) L 12/15/16 07:09 Triglycerides 62 mg/dL (0-149) 12/13/16 06:59 Cholesterol 180 mg/dL (0-199) 12/13/16 06:59 LDL Cholesterol Direct 110 mg/dL (0-129) 12/13/16 06:59 HDL Cholesterol 38 mg/dL (30-70) 12/13/16 06:59 Urine Color Yellow (YELLOW) 12/12/16 10:14 Urine Clarity Clear (Clear) 12/12/16 10:14 Urine pH 5.0 (5.0-8.0) 12/12/16 10:14 Ur Specific [place] 1.013 (1.003-1.030) 12/12/16 10:14 Urine Protein Negative mg/dL (NEGATIVE) 12/12/16 10:14 Urine Glucose (UA) 3+ mg/dL (Normal) H 12/12/16 10:14 Urine Ketones Trace mg/dL (NEGATIVE) 12/12/16 10:14 Urine Blood Negative (NEGATIVE) 12/12/16 10:14 Urine Nitrate Negative (NEGATIVE) 12/12/16 10:14 Urine Bilirubin Negative (NEGATIVE) 12/12/16 10:14 Urine Urobilinogen Normal mg/dL (0.2-1.0) 12/12/16 10:14 Ur Leukocyte Esterase Neg Nneka/uL (Negative) 12/12/16 10:14 Urine WBC (Auto) 1 /hpf (0-5) 12/12/16 10:14 Urine RBC (Auto) < 1 /hpf (0-3) 12/12/16 10:14 Ur Squamous Epith Cells < 1 /hpf (0-5) 12/12/16 10:14 Urine Bacteria Rare (<OCC) 12/12/16 10:14 Influenza Typ A,B (EIA) Negative for flu a/b (NEGATIVE) 12/12/16 09:36 Ur L.pneumophila Ag Negative (NEGATIVE) 12/12/16 17:02 - Hospital Course Hospital Course: Patient stable for discharge to rehab facility per Dr. aCrter. Patient should receive antibiotic for 5 more day (Azithromycin and Ceftriaxone) for pneumonia. Patient is still slightly wheezing. He should also take prednisone 20mg PO daily for 5 days. He should resume all of his home medications. Patient is to follow up with his primary care Dr. Ann within one week of discharge. Patient is to return to the ED if symptoms return or worsen. All instructions explained to the patient and he understands. Discharge Exam - Head Exam Head Exam: ATRAUMATIC, NORMAL INSPECTION Discharge Plan - Follow Up Plan Condition: FAIR Disposition: REHAB FACILITY/REHAB UNIT Additional Instructions: Patient stable for discharge to rehab facility per Dr. Carter. Patient should receive antibiotic for 5 more day (Azithromycin and Ceftriaxone) for pneumonia. Patient is still slightly wheezing. He should also take prednisone 20mg PO daily for 5 days. He should resume all of his home medications. Patient is to follow up with his primary care Dr. Ann within one week of discharge. Patient is to return to the ED if symptoms return or worsen. All instructions explained to the patient and he understands. Referrals: Aly Ann MD [Staff Provider] -
--- NOTE | 2016-12-15 11:18 | CP.PCM.PN ---
Subjective - Date & Time of Evaluation Date of Evaluation: 12/15/16 Time of Evaluation: 08:00 - Subjective Subjective: PGY-1 Medicine Progress Note for Dr. Carter: Patient seen and examined at bedside. No acute event overnight. He states his breathing has greatly improved with the breathing treatments. Patient still complaining of cough with a lot of white phlegm production but this is improving. Tolerating diet and having normal BMs. Denied fever/chills, sob, chest pain, palpitations, abd pain, n/v/d, numbness/tingling. Will try to discharge to TCU pending acceptance tomorrow. Patient lives alone at home and has no assistance with ADLS or with taking medications. Objective - Vital Signs/Intake and Output Vital Signs (last 24 hours): Temp Pulse Resp BP Pulse Ox 97.7 F 72 18 142/78 98 12/15/16 07:02 12/15/16 08:42 12/15/16 07:02 12/15/16 07:02 12/15/16 07:02 - Medications Medications: Current Medications Acetaminophen (Tylenol 325mg Tab) 650 mg PO Q6 PRN PRN Reason: Fever >100.4 F Last Admin: 12/14/16 00:27 Dose: 650 mg Albuterol/Ipratropium (Duoneb 3 Mg/0.5 Mg (3 Ml) Ud) 3 ml INH RQ4 [facility] Aspirin (Ecotrin) 81 mg PO DAILY [facility] Last Admin: 12/15/16 09:52 Dose: 81 mg Benzonatate (Tessalon Perles) 100 mg PO TID [facility] Last Admin: 12/15/16 09:53 Dose: 100 mg Ergocalciferol (Drisdol 50,000 Intl Units Cap) 1 cap PO QWK [facility] Last Admin: 12/13/16 09:22 Dose: 1 cap Heparin Sodium (Porcine) (Heparin) 5,000 units SC Q8 [facility] Last Admin: 12/15/16 05:41 Dose: 5,000 units Hydrochlorothiazide (Hydrodiuril) 25 mg PO DAILY [facility] Last Admin: 12/15/16 09:52 Dose: 25 mg Azithromycin 500 mg/ Sodium (Chloride) 250 mls @ 250 mls/hr IVPB Q24H [facility] Last Admin: 12/14/16 17:42 Dose: 250 mls/hr Ceftriaxone Sodium 1 gm/ (Sodium Chloride) 100 mls @ 100 mls/hr IVPB DAILY [facility] Last Admin: 12/15/16 09:52 Dose: 100 mls/hr Sodium Chloride (Sodium Chloride 0.9%) 1,000 mls @ 60 mls/hr IV .[id number] [facility] Last Admin: 12/15/16 05:40 Dose: 60 mls/hr Insulin Human Regular (Novolin R) 0 unit SC ACHS [facility] PRN Reason: Protocol Last Admin: 12/15/16 07:52 Dose: 8 unit Lisinopril (Zestril) 40 mg PO BID [facility] Last Admin: 12/15/16 09:53 Dose: 40 mg Metoprolol Tartrate (Lopressor) 100 mg PO BID [facility] Last Admin: 12/15/16 09:52 Dose: 100 mg Pantoprazole Sodium (Protonix Ec Tab) 40 mg PO DAILY [facility] Last Admin: 12/15/16 09:52 Dose: 40 mg Prednisone (Prednisone Tab) 20 mg PO DAILY [facility] Stop: 12/19/16 10:01 Last Admin: 12/15/16 10:39 Dose: 20 mg Pregabalin (Lyrica) 75 mg PO BID [facility] Last Admin: 12/15/16 09:54 Dose: 75 mg Rosuvastatin Calcium (Crestor) 5 mg PO HS [facility] Last Admin: 12/14/16 21:26 Dose: 5 mg - Labs Labs: 12/15/16 07:09 12/15/16 07:09 PT 11.5 SECONDS (9.7-12.2) 12/12/16 10:14 INR 1.0 12/12/16 10:14 APTT 28 SECONDS (21-34) 12/12/16 10:14 - Constitutional Appears: Non-toxic, No Acute Distress - Head Exam Head Exam: ATRAUMATIC, NORMAL INSPECTION - Eye Exam Eye Exam: EOMI, PERRL Pupil Exam: NORMAL ACCOMODATION - ENT Exam ENT Exam: Mucous Membranes Moist - Respiratory Exam Respiratory Exam: Decreased Breath Sounds, Wheezes, NORMAL BREATHING PATTERN. absent: Accessory Muscle Use, Chest Wall Tenderness, Respiratory Distress - Cardiovascular Exam Cardiovascular Exam: REGULAR RHYTHM, +S1, +S2 - GI/Abdominal Exam GI & Abdominal Exam: Soft, Normal Bowel Sounds. absent: Distended, Firm, Guarding, Tenderness - Extremities Exam Extremities Exam: Normal Inspection. absent: Calf Tenderness, Pedal Edema - Back Exam Back Exam: NORMAL INSPECTION. absent: CVA tenderness (L), CVA tenderness (R), paraspinal tenderness - Neurological Exam Neurological Exam: Alert, Awake, CN II-XII Intact, Oriented x3 - Psychiatric Exam Psychiatric exam: Normal Affect, Normal Mood - Skin Skin Exam: Dry, Intact, Normal Color, Warm Assessment and Plan - Assessment and Plan (Free Text) Assessment: Shortness of breath on admission suggestive of pneumonia now also possibly asthma/COPD component, will need PFTs outpatient WBC 4.8, afebrile, +wheezing will need PFTs outpatient Prednisone 20mg PO z 5 days repeat chest x ray no active disease will need to complete abx treament IV CXR on admission - left basilar infiltrate/atelectasis F/U Legionella - negative, influenza negative, f/u strep AG and Mycoplasma NS 60cc/hr Rocephin 1gm IVPB daily Zithromax 500mg IVPB daily Tylenol 650mg PO Q6H PRN fever Met SIRS crtieria on admission - resolved sputum cx - normal robbie, negative SIRS Resolved Temp 102.5 on admission left shift and bandemia Lactic Acid 2.6 Likely secondary to pneumonia CXR 12/12: cardiomegaly and elevated right hemidiaphragm (please see full report) . CXR 12/13: Left basilar infiltrate UA 3+ glucose, no WBC or LE or nitrates Influenza swab negative blood cx - negative after 48 hours urine cx - negative sputum cx - normal robbie, negative Tylenol 650mg PO Q6H PRN fever Head Ct negative "Contracted legs" Resolved Head CT on admission - moderate scattered nonspecific white matter changes. opacification of left mastoid air cells. Correlate clinically for mastoiditis ( please see full report) No mastoid tenderness, ear tenderness or jaw tenderness on exam DM Holding home metformin 500mg PO BID and glipizide 5mg PO BID RISS - high dose Monitor accuchecks Continue ASA 81mg PO daily and lipitor 10mg PO daily and lyrica 75mg PO BID HTN Continue home meds: Verapamil 300mg PO daily Lopressor 100mg PO daily Lisinopril 40mg PO BID HCTZ 25mg PO daily Vitamin D deficiency continue home med [id number] Q wk Prophylaxis Protonix 40mg PO daily Hep 5000U SC Q8 [facility] Waiting for TCU or subactue placement for completion of IV abx and physical therapy before going home. Likely d/c tomorrow if placed.
[2016-12-15 11:19] LABS: NEUTROPHIL 86 % (50-75); TOTAL CELLS COUNTED 100
[2016-12-15 16:27] VITALS: RESP 20
[2016-12-15] MEDS: Azithromycin 500 MG in Sodium Chloride 0.9% 250 ML IVPB SCH (17:53)
[2016-12-16] MEDS: Albuterol-Ipratrop 3 mg / 0.5 (3 ml) UD INH SCH ×5 (03:07→20:39)
[2016-12-16 07:06] LABS: CHLORIDE 97 mmol/L (98-107); SODIUM 136 mmol/L (132-148)
[2016-12-16 07:07] LABS: POTASSIUM 4.5 mmol/L (3.6-5.2)
[2016-12-16 07:09] LABS: ALB/GLOB RATIO 1.1 (1.0-2.1); ALKALINE PHOSPHATASE 76 U/L (38-126); ALT/SGPT 24 U/L (21-72); AST/SGOT 25 U/L (17-59); BILIRUBIN,TOTAL 0.4 mg/dL (0.2-1.3); BLOOD UREA NITROGEN 28 mg/dL (9-20); CARBON DIOXIDE 27 mmol/L (22-30); GFR AFRICAN-AMERICAN > 60; PHOSPHOROUS 4.6 mg/dL (2.5-4.5); TOTAL PROTEIN 6.5 g/dL (6.3-8.3)
[2016-12-16 07:10] LABS: CALCIUM 8.7 mg/dl (8.6-10.4); MAGNESIUM 1.9 mg/dL (1.6-2.3)
[2016-12-16 07:19] LABS: BASO % 0.1 % (0.0-2.0); HEMATOCRIT 31.1 % (35.0-51.0); LYMPH % 16.2 % (20.0-40.0); MEAN CORPUSCULAR HEMOGLOBIN 30.6 pg (27.0-31.0); MEAN CORPUSCULAR HGB CONC 32.9 g/dL (33.0-37.0); MEAN PLATELET VOLUME 9.4 fL (7.2-11.7); MONO # 0.7 K/uL (0.0-0.8); MONO % 10.5 % (0.0-10.0); RED CELL DISTRIBUTION WIDTH 13.8 % (11.5-14.5); WHITE BLOOD COUNT 6.2 K/uL (4.8-10.8)
[2016-12-16] MEDS: (Novolin R) Insulin Human Regular 100 units/ml vial SC SCH ×3 (07:54→17:05)
[2016-12-16 08:23] LABS: GLUCOSE,RANDOM 421 mg/dL (75-110)
[2016-12-16] MEDS: Pantoprazole 40 mg EC Tab PO SCH (09:51)
[2016-12-16 15:22] VITALS: BP 135/61; PULSE 76; TEMP 98.2; O2SAT 96
[2016-12-16] MEDS: Azithromycin 500 MG in Sodium Chloride 0.9% 250 ML IVPB SCH (17:05)
== END 2016-12-16 21:27 | DRG 194 ==
LOC: C.ER 09:11 → C.9E 15:47 → OBSVTOIN 16:03 → C.6T 16:59
PROVIDERS: ADMIT Hospitalist; ATTEND Hospitalist
DX: J18.9 Pneumonia, unspecified organism (principal); J98.11 Atelectasis; I11.9 Hypertensive heart disease without heart failure; E78.00 Pure hypercholesterolemia, unspecified; Z82.49 Family history of ischemic heart disease and other diseases of the circulatory system; Z87.891 Personal history of nicotine dependence; M62.462 Contracture of muscle, left lower leg; M62.461 Contracture of muscle, right lower leg; E11.9 Type 2 diabetes mellitus without complications; Z79.82 Long term (current) use of aspirin; Z79.4 Long term (current) use of insulin; E55.9 Vitamin D deficiency, unspecified